=== PATIENT | female | born 1955 | race Caucasian/White ===

== ENCOUNTER → 2016-04-20 | Outpatient (CLI) | payer BC ==
[2016-04-20 13:10] VITALS: BP 138/72
== END ==
LOC: MHUC 11:55
PROVIDERS: ATTEND Physician Assistant
DX: J09.X2 Influenza due to identified novel influenza A virus with other respiratory manifestations (principal)
CPT/HCPCS: 87880; 99213

== ENCOUNTER → 2016-05-21 | Outpatient (CLI) | payer BC | LOC: RAD 07:56 | PROVIDERS: ATTEND Family Medicine | DX: Z12.31 Encounter for screening mammogram for malignant neoplasm of breast (principal) ==

== ENCOUNTER 2016-05-28 12:21 | Day surgery (SDC) | payer BC ==
[~2016-05-28] VITALS: Ht 162.6 cm; Wt 56.4 kg
[2016-05-28] VITALS (12 sets, daily range): BP systolic 93–138; BP diastolic 52–87
--- NOTE | 2016-05-28 11:50 | Diagnostic Imaging Report ---
PROCEDURE: CT abdomen and pelvis without contrast. TECHNIQUE: Multiple contiguous axial images were obtained through the abdomen and pelvis without the use of intravenous contrast. INDICATION: Right lower quadrant pain. COMPARISON: None available. FINDINGS: There is a small 5 mm appendicolith located at the neck of the appendix. The appendix is dilated measuring up to 9 mm and is filled with fluid. There is mild periappendiceal inflammatory changes indicative of acute appendicitis. No surrounding air to indicate microperforation. No abscess formation. There is no bowel obstruction. Lung bases are clear. No pericardial or pleural effusion. Evaluation of the abdominal viscera is limited without IV contrast. Allowing for this, liver, gallbladder and spleen are normal. The pancreas is grossly normal by noncontrast imaging. Adrenals and kidneys are normal. No obstructive uropathy. Urinary bladder is distended without wall thickening. Uterus and ovaries are normal in appearance for patient's age. No abdominopelvic lymphadenopathy. Normal caliber abdominal aorta with scattered atherosclerotic disease. IMPRESSION: 1. Findings indicative of acute uncomplicated appendicitis with a small obstructing appendicolith at the neck of the appendix. No bowel obstruction, perforation or abscess formation. Findings were called by Dr. Alex Barragan to Dr. Spivey at 11:30 AM on 05/28/2016. Dictated by: Dictated on workstation # [id number]
[~2016-05-28 12:21] MED LIST: BENZ-22 PO; CIPR2.5D OP; CITA40TA19 PO; CPR500T PO; OXYC1TAB87 PO; PHEN-640 PO; PRED20TA PO
--- OUTSIDE RECORDS SUMMARY | 2016-05-28 12:26 | XMS REPORT | Continuity of Care Document ---
Author Author [facility] Address Unknown Phone Unavailable Allergies Active Description Code Type Severity Reaction Onset Reported/Identified Relationship to Patient Clinical Status Yes No Known Drug Allergies [id number] Drug Allergy Unknown N/ A 03/10/2015 Medications Problems Date Dx Coded Attending Type Code Diagnosis Diagnosed By 10/12/2011 Ot 724.2 LUMBAGO 10/12/2011 Ot 724.4 LUMBOSACRAL NEURITIS NOS 10/12/2011 Ot 724.8 OTHER BACK SYMPTOMS 12/29/2011 Ot 801.01 CL SKUL BASE FX W/O COMA 12/29/2011 Ot 802.8 FX FACIAL BONE NEC-CLOSE 12/29/2011 Ot 922.1 CONTUSION OF CHEST WALL 12/29/2011 Ot E885.9 FALL FROM SLIPPING, TRIPPING, OR STUMBLI 06/08/2012 Ot 719.41 JOINT PAIN-SHLDER 06/08/2012 Ot 719.51 JT STIFFNESS NEC-SHLDER 06/08/2012 Ot V57.1 PHYSICAL THERAPY NEC 06/12/2014 Matt REA, Severiano Iyer Ot 728.87 MUSCLE WEAKNESS (GENERALIZED) 06/12/2014 Severiano Gutierrez MD Ot V57.1 PHYSICAL THERAPY NEC 03/10/2015 AMIE HERRING MD Ot H10.32 UNSPECIFIED ACUTE CONJUNCTIVITIS, LEFT E 03/10/2015 AMIE HERRING MD Ot H57.12 OCULAR PAIN, LEFT EYE 05/08/2015 SUZAN FINN Ot N39.0 05/27/2015 Severiano Gutierrez MD Ot Z12.31 07/05/2015 Rico REA, Juan A Goncalves Ot M79.672 PAIN IN LEFT FOOT 07/09/2015 Juan A Gómez MD Ot M79.672 PAIN IN LEFT FOOT 08/06/2015 Ot 719.45 JOINT PAIN-PELVIS 08/06/2015 Ot 724.4 LUMBOSACRAL NEURITIS NOS 08/06/2015 Ot 724.5 BACKACHE NOS 08/06/2015 SUZAN FINN Ot N39.0 URINARY TRACT INFECTION, SITE NOT SPECIF 08/06/2015 Severiano Gutierrez MD, Ot Z12.31 ENCNTR SCREEN MAMMOGRAM FOR MALIGNANT NE 08/06/2015 Juan A Gómez MD Ot M79.672 PAIN IN LEFT FOOT 09/04/2015 SUZAN FINN Ot N39.0 URINARY TRACT INFECTION, SITE NOT SPECIF 09/25/2015 Juan A Gómez MD Ot M79.672 PAIN IN LEFT FOOT 09/25/2015 Ot 719.45 JOINT PAIN-PELVIS 09/25/2015 Ot 724.4 LUMBOSACRAL NEURITIS NOS 09/25/2015 Ot 724.5 BACKACHE NOS 09/25/2015 SUZAN FINN Ot N39.0 URINARY TRACT INFECTION, SITE NOT SPECIF 09/25/2015 Severiano Gutierrez MD, Ot Z12.31 ENCNTR SCREEN MAMMOGRAM FOR MALIGNANT NE 09/25/2015 Juan A Gómez MD Ot M79.672 PAIN IN LEFT FOOT 09/27/2015 Jaylin Paul MEDICAL INTERPRETER Ot N30.00 ACUTE CYSTITIS WITHOUT HEMATURIA 10/15/2015 Jaylin Paul MEDICAL INTERPRETER Ot N30.00 ACUTE CYSTITIS WITHOUT HEMATURIA 04/24/2016 SUZAN FINN Ot J09.X2 FLU DUE TO IDENT NOVEL INFLUENZA A VIRUS 04/30/2016 SUZAN FINN Ot J09.X2 FLU DUE TO IDENT NOVEL INFLUENZA A VIRUS 05/25/2016 Severiano Gutierrez MD, Ot Z12.31 ENCNTR SCREEN MAMMOGRAM FOR MALIGNANT NE Procedures Results Encounters ACCT No. Visit Date/Time Discharge Status Pt. Type Provider Facility Loc./Unit Complaint [id number] 08/23/2014 10:01:41 08/23/2014 23:59:59 CLS Outpatient [id number] 08/23/2014 09:59:36 08/23/2014 23:59:59 CLS Outpatient [id number] 08/23/2014 10:01:43 08/23/2014 10:01:43 DIS Outpatient [id number] 08/23/2014 09:59:37 08/23/2014 09:59:39 DIS Outpatient
[2016-05-28] MEDS ORDERED: BUPIVACAINE/EPINEPHRINE 0.25%-1:200,000 (MARCAINE) 30 ML VIAL INJ ONE (12:29)
[2016-05-28] MEDS ORDERED: PROPOFOL 20 ML IV ONE (12:35)
[2016-05-28] MEDS ORDERED: ROCURONIUM 50 MG/5 ML (ZEMURON) VIAL IV ONE (12:35)
[2016-05-28] MEDS ORDERED: ALFENTANIL 1,000 MCG/2 ML AMP IV ONE (12:35)
[2016-05-28] MEDS ORDERED: ONDANSETRON 2 MG/ML (Z0FRAN) 2 ML VIAL ONE (12:35)
[2016-05-28] MEDS ORDERED: PIPERACILLIN/TAZOBACTAM 3.375 GM in SODIUM CHLORIDE 50 ML IV ONE (12:45)
[2016-05-28] MEDS ORDERED: SODIUM CHLORIDE FLUSH 3 ML SYR IV PRN (12:45)
[2016-05-28] MEDS ORDERED: ACETAMINOPHEN 500 MG TAB (TYLENOL) PO SCH (12:45)
[2016-05-28] MEDS ORDERED: oxyCODONE IMMEDIATE RELEASE 5 MG (OXYIR) TAB PO SCH (12:45)
[2016-05-28] MEDS ORDERED: LACTATED RINGERS 1,000 ML IV SCH (12:45)
[2016-05-28] MEDS ORDERED: ePHEDrine SULFATE 50 MG/ML 1 ML AMP ONE (14:11)
[2016-05-28] MEDS ORDERED: diphenhydrAMINE 50 MG/ML INJ (BENADRYL) ONE ×2 (14:16→14:43)
[2016-05-28] MEDS ORDERED: NEOSTIGMINE 1 MG/ML SYRINGE ONE (14:47)
[2016-05-28] MEDS ORDERED: GLYCOPYRROLATE 0.2 MG/ML (ROBINUL) 1 ML VIAL ONE (14:47)
--- NOTE | 2016-05-28 14:56 | Post Operative Note (E) ---
Post Op Note 05/28/16 14:54 Pre-Operative Diagnosis: Acute appendicitis Post-Operative Diagnosis: Acute suppurative appendicitis Procedure: Laparoscopic appendectomy Surgeon: Patric Heel Builder Machine: Vincenzo Findings: Same. Fecalith in neck of appendix Anesthesia: GOT EBL: 5 ml Drains: None Specimem: Appendix, photos Complications None Condition: Good. Op note dict #[id number] ARIA BELTRE MD May 28, 2016 14:56
[2016-05-28] MEDS ORDERED: KETOROLAC 60 MG/2 ML (TORADOL) VIAL IM ONE (15:00)
[2016-05-28] MEDS ORDERED: ONDANSETRON 2 MG/ML (Z0FRAN) 2 ML VIAL IV PRN (15:00)
[2016-05-28] MEDS ORDERED: ACETAMINOPHEN 325 MG TAB (TYLENOL) PO PRN (15:00)
[2016-05-28] MEDS ORDERED: morphine INJ 2 MG/ML 1 ML SYRINGE IV PRN (15:00)
--- NOTE | 2016-05-28 15:13 | OPERATIVE REPORT ---
DATE OF OPERATION: 05/28/2016 PRE-OPERATIVE DIAGNOSIS: Acute appendicitis POST-OPERATIVE DIAGNOSIS: Acute suppurative appendicitis OPERATIVE PROCEDURE: Laparoscopic appendectomy SURGEON: Carson Spivey MD PLAN COORDINATOR: Cheryl Loya RN, [facility] ANESTHESIA: General Orotracheal POSITION: Trendelenburg with left rotation PREP: Chlorhexidine ESTIMATED BLOOD LOSS: Minimal FINDINGS: 1. Acutely inflamed appendix with mild suppuration, but no perforation or abscess. 2. Appendicolith in the base of the appendix. 3. Normal cecum, terminal ileum, pelvic viscera, liver, and gallbladder. DESCRIPTION OF PROCEDURE: Following satisfactory induction of anesthesia, the patient was prepped and draped in sterile fashion. A vertical midline supraumbilical incision was made. This was carried down to and through the fascia under direction vision. The Radha blunt tipped cannula was inserted and anchored to fascia with a pursestring suture of #0 Vicryl. The videolaparoscope was introduced confirming intraperitoneal placement and the peritoneal cavity insufflated to a maximum pressure of 15 mmHg with carbon dioxide. Two accessory cannulas (5 mm each) were placed under direct vision in the left lower quadrant and the suprapubic midline. Routine inspection revealed the above findings. Windows were created in the appendiceal mesentery with blunt dissection. The segments of mesentery were transected using the Harmonic scalpel barbara. The base of the appendix was doubly ligated with #0 Vicryl Endoloops. A third Endoloop was placed on the specimen side and the specimen sharply transected. The specimen, along with the appendicolith was placed in specimen bag. The operative site was irrigated with saline, which was evacuated revealing good hemostasis. Closure was accomplished as follows. The accessory cannulas were removed under direct vision revealing good hemostasis at their insertion sites. The peritoneal cavity was evacuated of excess carbon dioxide. The appendix in specimen bag was removed through the supraumbilical incision and submitted to pathology. Supraumbilical incision fascia was closed with a previously placed pursestring suture of #0 Vicryl. The skin incisions were closed with continuous subcuticular suture of 4-0 Monocryl and Dermabond dressing. The patient tolerated the procedure well and transferred to recovery in stable condition. Final instrument, needle and sponge counts correct.
--- NOTE | 2016-05-28 15:30 | NUR ---
Pt admitted to OR at this time via bed accompanied by GISELE Neal RN and . Pt is alert, denies pain or nausea. NS @ 75mL/hr infusing per order into L FA. CL provided. Post op VS initiated. Addendum: 05/28/16 at 1618 by Ermelinda Vick RN 3 lap incisions open to air; clean, dry, intact. Closed with indermil.
--- NOTE | 2016-05-28 16:10 | NUR ---
PRN Tylenol given at this time per pt request for incisional discomfort. States umbilicus incision is the only one that is uncomfortable. Denies other needs.
[2016-05-28] MEDS: oxyCODONE IMMEDIATE RELEASE 5 MG (OXYIR) TAB PO PRN ×2 (17:04→21:40)
--- NOTE | 2016-05-28 17:04 | NUR ---
PRN OxyIR given at this time for general discomfort. Pt states pain is approx 5/10. Denies other needs. Will continue to monitor.
--- NOTE | 2016-05-28 18:43 | NUR ---
Pt denies pain or nausea at this time. More family just arrived in room. Popsicle and saltines provided. Juice offered, refused; pt states she tries to not drink/eat too much sugar. Pt denies needs at this time.
[2016-05-29] MEDS: oxyCODONE IMMEDIATE RELEASE 5 MG (OXYIR) TAB PO PRN (01:40)
[2016-05-29 03:46] VITALS: BP 103/86
--- NOTE | 2016-05-29 07:30 | NUR ---
Patient sitting up in recliner upon shift assessment. Alert and oriented X3. Reports abdominal pain rated 3/10 on pain scale contributed to surgical incisions. Three incisions clean and dry without dressing. No redness. HR RRR. Lung sounds CTAB. Reports passing flatus. Bowel sounds active in all quadrants. Updated on plan of care for shift including pain management, advancing diet, and activity. Call light in reach.
[2016-05-29 07:48] VITALS: BP 109/57
--- NOTE | 2016-05-29 08:50 | NUR ---
Patient tolerates 100% of surgical soft breakfast tray well. Denies increased pain or nausea. Will continue to monitor.
--- NOTE | 2016-05-29 10:27 | Progress Note (E) ---
Progress Note Surgery note Subjective: Minimal discomfort. Eating well. Ambulating and voiding well. Objective: Vitals stable. In no distress. Lungs clear. Abdomen soft. Normal BS. Incisions intact. Impression: Doing well. Recommendations: Discharge home. ARIA BELTRE MD May 29, 2016 10:27
--- NOTE | 2016-05-29 10:29 | Discharge Instructions (E) ---
Discharge Instructions Instructions No dressings required. May shower tonight. No immersion in water for 2 weeks. Call for wound redness, purulent drainage, fever over 100.5, increasing pain or nausea. Activity Instructions No lifting or straining over 20 lbs for 2 weeks. Otherwise, as is comfortable. Do not drive until pain free off pain meds. Doctor's Appointment 2 weeks Discharge Diet: Regular ARIA BELTRE MD May 29, 2016 10:29
[2016-05-29] MEDS ORDERED: OXC5T PO (10:31)
--- NOTE | 2016-05-29 11:03 | NUR ---
MED REC COMPLETE--patient reports no home medications.
--- NOTE | 2016-05-29 11:14 | NUR ---
Patient ambulating in durán independently, passing gas, tolerating intake, and voiding adequately. Discharge order received. IV discontinued with catheter intact. Discharge instructions provided to patient with verbal and written understanding expressed.
--- NOTE | 2016-05-29 11:29 | NUR ---
Patient dismissed via wheelchair to private car accompanied by kitchen steward and . No further needs.
== END 2016-05-29 11:28 | disposition home or self-care (01) ==
LOC: ASC 12:21 → MED/SURG 15:20 → ASC 05-29 11:28
PROVIDERS: ATTEND Surgery
DX: K35.3 Acute appendicitis with localized peritonitis (principal)
CPT/HCPCS: 44970; 74176; J1200; J1885; J2710; J3490; J7030; J7120